=== PATIENT | female | born 1970 | race Caucasian/White ===

== ENCOUNTER 2018-09-03 13:39 | Emergency (ER) | payer OTHER ==
--- OUTSIDE RECORDS SUMMARY | 2018-09-03 13:42 | XMS REPORT | Clinical Summary ---
:1970 Author Organization [facility] Address [address] [place] [address] Care Team Providers Name Role Phone Lorne Primary Care Provider Allergies Not on File Medications Not on file Active Problems Not on file Social History Tobacco Use Types Packs/Day Years Used Date Never Assessed Sex Assigned at Date Recorded Not on file Job Start Date Occupation Industry Not on file Not on file Not on file Travel History Travel Start Travel End No recent travel history available. Last Filed Vital Signs Not on file Plan of Treatment Not on file Results Not on fileafter 09/02/2017 Insurance Payer Benefit Plan / Group Subscriber ID Type Phone Address [employer]ET[employer] - [place] [employer] AETNA PPO OPEN [employer] NAP xxxxxxxxx PPO AET[employer] - [place] [employer] AETNA HMO POS QPOS xxxxxxxxx HMO/POS CLAUDETTE Fontaine (Home) [place] [address]
--- NOTE | 2018-09-03 15:48 | RAD REPORT ---
EXAM DESCRIPTION: RAD - Neck Soft Tissue - 09/03/2018 3:28 pm CLINICAL HISTORY: FORIEGN BODY Dysphagia COMPARISON: None FINDINGS: Prevertebral soft tissues are normal. Epiglottis and aryepiglottic folds are normal. Air c olumn is patent. No foreign body is seen. IMPRESSION: Negative study.
--- NOTE | 2018-09-03 15:48 | RAD REPORT ---
EXAM DESCRIPTION: RAD - Chest Single View - 09/03/2018 3:27 pm CLINICAL HISTORY: r/o FB Chest pain. COMPARISON: Abdomen 1 View (KUB) dated 09/03/2018 FINDINGS: Portable technique limits examination quality. The lungs are grossly clear. The heart is normal in size. No displaced fractures. IMPRESSION: No acute intrathoracic process suspected.
--- NOTE | 2018-09-03 15:48 | RAD REPORT ---
EXAM DESCRIPTION: RAD - Abdomen 1 View (KUB) - 09/03/2018 3:27 pm CLINICAL HISTORY: r/o FB Pain COMPARISON: None FINDINGS: The bowel gas pattern is non-obstructive. No evidence of free air or pneumatosis. No suspi cious calcifications. Linear radiodensity in the stomach is of unclear etiology and could represent an ingested foreign bod y.
--- NOTE | 2018-09-03 15:49 | EDPHYS ---
Physician Documentation [facility] Name: Johanna Duncan Age: 48 yrs Sex: Female : 1970 Arrival Date: 09/03/2018 Time: 13:43 Bed 23 Private MD: Prateek Guillermo ED Physician Stephane Carrillo HPI: 09/03 14:05 This 48 yrs old Female presents to ER via Ambulatory with complaints of kb Swallowed Foreign Body. 14:05 The patient or guardian reports the patient has a suspected foreign body, that has been kb ingested. The reported likely foreign body is artificial tooth. Onset: The symptoms/episode began/occurred 1.5 hour(s) ago. Current symptoms: foreign body sensation. Treatment Prior to Arrival: none. The patient has not experienced similar symptoms in the past. The patient has not recently seen a physician. 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 - Social history:: Smoking status: Patient/guardian denies using tobacco. - Ebola Screening: : No symptoms or risks identified at this time. ROS: 14:04 Constitutional: Negative for fever, chills, and weight loss, ENT: Negative for injury, kb pain, and discharge, Neck: Negative for injury, pain, and swelling, Cardiovascular: Negative for chest pain, palpitations, and edema, Respiratory: Negative for shortness of breath, cough, wheezing, and pleuritic chest pain, Abdomen/GI: Negative for abdominal pain, nausea, vomiting, diarrhea, and constipation, Back: Negative for injury and pain, : Negative for injury, bleeding, discharge, and swelling, MS/Extremity: Negative for injury and deformity, Skin: Negative for injury, rash, and discoloration, Neuro: Negative for headache, weakness, numbness, tingling, and seizure. Exam: 14:04 Constitutional: This is a well developed, well nourished patient who is awake, alert, kb and in no acute distress. Head/Face: Normocephalic, atraumatic. ENT: Nares patent. No nasal discharge, no septal abnormalities noted. Tympanic membranes are normal and external auditory canals are clear. Oropharynx with no redness, swelling, or masses, exudates, or evidence of obstruction, uvula midline. Mucous membranes moist. Neck: Trachea midline, no thyromegaly or masses palpated, and no cervical lymphadenopathy. Supple, full range of motion without nuchal rigidity, or vertebral point tenderness. No Meningismus. Chest/axilla: Normal chest wall appearance and motion. Nontender with no deformity. No lesions are appreciated. Cardiovascular: Regular rate and rhythm with a normal S1 and S2. No gallops, murmurs, or rubs. Normal PMI, no JVD. No pulse deficits. Respiratory: Lungs have equal breath sounds bilaterally, clear to auscultation and percussion. No rales, rhonchi or wheezes noted. No increased work of breathing, no retractions or nasal flaring. Abdomen/GI: Soft, non-tender, with normal bowel sounds. No distension or tympany. No guarding or rebound. No evidence of tenderness throughout. Skin: Warm, dry with normal turgor. Normal color with no rashes, no lesions, and no evidence of cellulitis. MS/ Extremity: Pulses equal, no cyanosis. Neurovascular intact. Full, normal range of motion. Neuro: Awake and alert, GCS 15, oriented to person, place, time, and situation. Cranial nerves II-XII grossly intact. Motor strength 5/5 in all extremities. Sensory grossly intact. Cerebellar exam normal. Normal gait. Vital Signs: 13:50 BP 171 / 100; Pulse 106; Resp 16; Temp 98.3; Pulse Ox 100% ; Weight 70.76 kg; kr2 16:06 BP 158 / 100; Pulse 88; Resp 16; Pulse Ox 99% on R/A; Pain 3/10; ls4 MDM: 13:52 Patient medically screened. kb 14:01 Data reviewed: vital signs, nurses notes. Data interpreted: Pulse oximetry: on room air kb is 100 %. Interpretation: normal. Counseling: I had a detailed discussion with the patient and/or guardian regarding: the historical points, exam findings, and any diagnostic results supporting the discharge/admit diagnosis, radiology results, the need for outpatient follow up, a family practitioner, to return to the emergency department if symptoms worsen or persist or if there are any questions or concerns that arise at home. 09/03 14:00 Order name: Neck Soft Tissue XRAY; Complete Time: 16:05 kb 09/03 14:00 Order name: Abdomen 1 View (KUB) XRAY; Complete Time: 16:05 kb 09/03 14:00 Order name: Chest Single View XRAY; Complete Time: 16:05 kb 09/03 15:47 Order name: PO challenge; Complete Time: 16:02 kb Administered Medications: No medications were administered Disposition: 18:01 Co-signature as Attending Physician, Stephane Carrillo MD. rn Disposition: 09/03/18 15:49 Discharged to Home. Impression: Ingested Foreign Body. - Condition is Stable. - Discharge Instructions: Swallowed Foreign Body, Adult, [id number]-or-Ungx. - Medication Reconciliation Form, Thank You Letter, Antibiotic Education, Prescription Opioid Use form. - Follow up: Emergency Department; When: As needed; Reason: Worsening of condition. Follow up: Private Physician; When: 2 - 3 days; Reason: Recheck today's complaints, Continuance of care, Re-evaluation by your physician. Signatures: Dispatcher [employer] EDGA Karen Brady, CLINICAL APPEALS SPECIALIST-C CLINICAL APPEALS SPECIALIST-Ckb Stephane Carrillo MD MD rn Reaves, Karey RN RN kr2 Janel Castellano RN RN ls4 Corrections: (The following items were deleted from the chart) 16:09 15:49 09/03/2018 15:49 Discharged to Home. Impression: Ingested Foreign Body. Condition ls4 is Stable. Forms are Medication Reconciliation Form, Thank You Letter, Antibiotic Education, Prescription Opioid Use. Follow up: Emergency Department; When: As needed; Reason: Worsening of condition. Follow up: Private Physician; When: 2 - 3 days; Reason: Recheck today's complaints, Continuance of care, Re-evaluation by your physician. kb
--- NOTE | 2018-09-03 15:49 | ER ---
Nurse's Notes [facility] Name: Johanna Duncan Age: 48 yrs Sex: Female : 1970 Arrival Date: 09/03/2018 Time: 13:43 Bed 23 Private MD: Prateek Guillermo Diagnosis: Ingested Foreign Body Presentation: 09/03 13:46 Presenting complaint: Patient states: I have a small acrylic dental flipper that came kr2 loose in my mouth and when I was drinking something I swallowed it. Transition of care: patient was not received from another setting of care. Onset of symptoms was September 03, 2018 at 12:37. Risk Assessment: Do you want to hurt yourself or someone else? Patient reports no desire to harm self or others. Initial Sepsis Screen: Does the patient meet any 2 criteria? No. Patient's initial sepsis screen is negative. Does the patient have a suspected source of infection? No. Patient's initial sepsis screen is negative. Care prior to arrival: None. 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 - Social history:: Smoking status: Patient/guardian denies using tobacco. - Ebola Screening: : No symptoms or risks identified at this time. Screenin:07 Abuse screen: Denies threats or abuse. Denies injuries from another. Nutritional ls4 screening: No deficits noted. Tuberculosis screening: No symptoms or risk factors identified. Fall Risk None identified. Assessment: 14:01 General: Appears in no apparent distress. Behavior is calm, cooperative, Smells of. ls4 Pain: Denies pain. Cardiovascular: No deficits noted. Respiratory: No deficits noted. Reports feels like something is in there throat. GI: No deficits noted. : No deficits noted. EENT: No deficits noted. Throat is clear. Musculoskeletal: No deficits noted. 15:08 Reassessment: Patient appears in no apparent distress at this time. Patient and/or ls4 family updated on plan of care and expected duration. Pain level reassessed. Patient is alert, oriented x 3, equal unlabored respirations, skin warm/dry/pink. 15:43 Reassessment: Patient appears in no apparent distress at this time. Patient and/or ls4 family updated on plan of care and expected duration. Pain level reassessed. Patient is alert, oriented x 3, equal unlabored respirations, skin warm/dry/pink. PO challenge water. pt drank with no distress, drank 2 cups and asked for more. Vital Signs: 13:50 BP 171 / 100; Pulse 106; Resp 16; Temp 98.3; Pulse Ox 100% ; Weight 70.76 kg; kr2 16:06 BP 158 / 100; Pulse 88; Resp 16; Pulse Ox 99% on R/A; Pain 3/10; ls4 ED Course: 13:43 Patient arrived in ED. sb2 13:43 Prateek Guillermo MD is Private Physician. sb2 13:48 Triage completed. kr2 13:52 Karen Brady FNP-C is [facility]. kb 13:52 Stephane Carrillo MD is Attending Physician. kb 14:00 Patient has correct armband on for positive identification. Bed in low position. Call ls4 light in reach. Side rails up X 1. 14:00 No provider procedures requiring assistance completed. Patient did not have IV access ls4 during this emergency room visit. 14:23 Janel Castellano, RN is Primary Nurse. ls4 15:28 Neck Soft Tissue XRAY In Process Unspecified. EDMS 15:28 Abdomen 1 View (KUB) XRAY In Process Unspecified. EDMS 15:28 Chest Single View XRAY In Process Unspecified. EDMS Administered Medications: No medications were administered Outcome: 15:49 Discharge ordered by . kb 15:51 Condition: good ls4 16:08 Discharged to home ambulatory, with family. ls4 16:08 Discharge instructions given to patient, family, Instructed on discharge instructions, follow up and referral plans. medication usage, Demonstrated understanding of instructions, follow-up care, medications. 16:09 Patient left the ED. ls4 Signatures: Dispatcher [employer] EDMS Karen Brady, JAYLA-Shandra DICKERSON-Lazara Tariq RN RN kr2 Sally Klein2 Janel Castellano RN RN ls4
== END 2018-09-03 16:09 | disposition home or self-care (01) ==
LOC: ER 13:39
DX: T18.9XXA Foreign body of alimentary tract, part unspecified, initial encounter (principal); I10 Essential (primary) hypertension; Z88.0 Allergy status to penicillin; Z91.013 Allergy to seafood
CPT/HCPCS: 70360; 71045; 74018; 99283